=== PATIENT | female | born 1995 | race Caucasian/White ===

== ENCOUNTER 2018-04-13 03:47 | Emergency (ER) | payer BC, MEDICAID ==
[~2018-04-13] VITALS: Ht 170.2 cm; Wt 72.6 kg
--- NOTE | 2018-04-13 03:50 | NUR ---
at bedside for eval.
[2018-04-13] MEDS ORDERED: ONDANSETRON ODT 4 MG TAB.RAPDIS ONE (03:56)
[2018-04-13] MEDS ORDERED: ONDANSETRON ODT 4 MG TAB.RAPDIS SL ONE (04:00)
--- NOTE | 2018-04-13 04:50 | NUR ---
No episodes of n/v at this time. Will continue to monitor.
--- NOTE | 2018-04-13 05:50 | NUR ---
Pt in room in no acute distress. V/S are WNL with oxygen 100% via n/c 2L/min.
--- NOTE | 2018-04-13 06:56 | NUR ---
Report given to SHALINI Ellsworth.
--- NOTE | 2018-04-13 08:10 | NUR ---
Patient discharged to home in stable conditon. Written and verbal after care instructions given. Patient verbalizes understanding of instructions.pt walks in steady gait, pt with so, break fast provided for both the pt and so. pt appreciative of the care recieved here.
[2018-04-13 08:12] VITALS: BP 107/61
== END 2018-04-13 08:13 | disposition home or self-care (01) ==
LOC: ER 03:48
DX: T40.1X1A Poisoning by heroin, accidental (unintentional), initial encounter (principal); Y92.89 Other specified places as the place of occurrence of the external cause
CPT/HCPCS: 99283; A4663; Q0162